=== PATIENT | female | born 1960 | race Caucasian/White ===

== ENCOUNTER 2024-09-18 06:12 | Day surgery (SDC) | payer BC, MEDICARE ==
[2024-09-14 13:58] VITALS: BMI 26.6
[2024-09-18] MEDS ORDERED: CEFAZOLIN 2 GM VIAL ONE (07:33)
[2024-09-18] MEDS ORDERED: Lidocaine 1% MPF 2 ML VIAL ONE (07:33)
[2024-09-18] MEDS ORDERED: fentaNYL 50 mcg/mL 1 mL Vial ONE (07:56)
[2024-09-18] MEDS ORDERED: PROPOFOL 20 ML ONE (07:56)
[2024-09-18] MEDS ORDERED: Bupivacaine PF 0.5% 30 ML VIAL ONE (08:13)
[2024-09-18] MEDS ORDERED: Ondansetron PF 4 MG/2 ML Vial ONE (08:45)
[2024-09-18] MEDS ORDERED: Dexamethasone 20 MG/5 ML VIAL ONE (08:45)
== END 2024-09-18 12:10 | disposition home or self-care (01) ==
LOC: SDC 06:12
PROVIDERS: ATTEND Orthopaedic Surgery
PROC: 01N54ZZ Release Median Nerve, Percutaneous Endoscopic Approach (ICD-10-PCS; principal; 2024-09-18)
DX: G56.03 Carpal tunnel syndrome, bilateral upper limbs (principal); I10 Essential (primary) hypertension; Z86.16 Personal history of COVID-19; Z79.899 Other long term (current) drug therapy
CPT/HCPCS: A6223; J0665; J1100; J2405; J2704; J3010